=== PATIENT | male | born 1945 ===

== ENCOUNTER 2018-12-13 08:38 | Emergency (ER) | payer OTHER ==
[~2018-12-13] VITALS: Ht 177.8 cm; Wt 98.0 kg
[~2018-12-13 08:38] MED LIST: BUSPAR 10MG; LIPITOR 10MG; LOTREL 5/40 MG1 CAP PO
[2018-12-13] MEDS ORDERED: OMEGA-31000 MG (08:53)
[2018-12-13] MEDS ORDERED: FORTAMET500 MG PO (08:53)
[2018-12-13] MEDS ORDERED: GLYCOTROL CAPS1 EACH (08:54)
== END 2018-12-13 11:28 | disposition designated cancer center or children's hospital (05) ==
LOC: ER 08:38 → CPU-OBS 08:39 → ER 08:39
DX: I24.9 Acute ischemic heart disease, unspecified (principal); R07.89 Other chest pain